=== PATIENT | male | born 1960 | race American Indian/Alaskan Native ===

== ENCOUNTER 2017-06-29 10:27 | Outpatient (CLI) | payer MEDICARE ==
--- NOTE | 2017-06-29 10:59 | XRay Report ---
CHEST 2 VIEWS INDICATION: Pneumonia. COMPARISON: None similar at this institution. FINDINGS: Frontal and lateral chest radiographs demonstrate large right lower lung pneumonia with obscured right hemidiaphragm and right heart borders. Clear right upper and left lungs. Grossly normal heart size. Mild thoracic spondylosis. Few upper abdominal postsurgical changes possible. CONCLUSION: Large right lower lobe pneumonia, as described. Thank you for the opportunity to participate in this patient's care.
== END 2017-06-29 10:28 | disposition home or self-care (01) ==
LOC: XRAY 10:27
DX: J18.9 Pneumonia, unspecified organism (principal); M47.894 Other spondylosis, thoracic region
CPT/HCPCS: 71046